=== PATIENT | female | born 1940 | race Caucasian/White ===

== ENCOUNTER 2016-07-19 11:13 | Inpatient (IN) | payer MEDICARE, SELFPAY ==
[2016-07-26] MEDS ORDERED: COZAAR100 MG PO (09:02)
[2016-07-26] MEDS ORDERED: BREO ELLIPTA 11 EACH IH (09:02)
[2016-07-26] MEDS ORDERED: OMEPRAZOLE40 MG PO (09:02)
== END 2016-07-22 12:30 | disposition home health service (06) | DRG 645 ==
LOC: ER 11:13 → MED 18:15
PROVIDERS: ADMIT Internal Medicine
DX: E22.2 Syndrome of inappropriate secretion of antidiuretic hormone (principal); E87.6 Hypokalemia; K52.9 Noninfective gastroenteritis and colitis, unspecified; R11.0 Nausea; I10 Essential (primary) hypertension; K21.9 Gastro-esophageal reflux disease without esophagitis; F03.90 Unspecified dementia, unspecified severity, without behavioral disturbance, psychotic disturbance, mood disturbance, and anxiety; J45.909 Unspecified asthma, uncomplicated; K44.9 Diaphragmatic hernia without obstruction or gangrene; K29.70 Gastritis, unspecified, without bleeding; K91.5 Postcholecystectomy syndrome; R10.13 Epigastric pain; Z90.49 Acquired absence of other specified parts of digestive tract; Z88.0 Allergy status to penicillin; Z79.899 Other long term (current) drug therapy; Z87.891 Personal history of nicotine dependence; Z83.3 Family history of diabetes mellitus; E86.0 Dehydration; T50.2X5A Adverse effect of carbonic-anhydrase inhibitors, benzothiadiazides and other diuretics, initial encounter
CPT/HCPCS: 36415; 87507; 92610; J1650; Q9963; Q9967

== ENCOUNTER 2016-07-19 11:13 | Emergency (ER) | payer MEDICARE, SELFPAY ==
[2016-07-26] MEDS ORDERED: BREO ELLIPTA 11 EACH IH (09:02)
[2016-07-26] MEDS ORDERED: COZAAR100 MG PO (09:02)
[2016-07-26] MEDS ORDERED: OMEPRAZOLE40 MG PO (09:02)
== END 2016-07-19 18:14 | disposition critical access hospital (66) ==
LOC: ER 11:13
DX: R10.9 Unspecified abdominal pain (principal); E87.1 Hypo-osmolality and hyponatremia; E87.6 Hypokalemia; R11.2 Nausea with vomiting, unspecified; F41.9 Anxiety disorder, unspecified; F32.9 Major depressive disorder, single episode, unspecified; I10 Essential (primary) hypertension; Z79.899 Other long term (current) drug therapy; Z88.8 Allergy status to other drugs, medicaments and biological substances
CPT/HCPCS: 36415; 96361; 96365; 96366; 96375; Q9967

== ENCOUNTER → 2017-01-18 | Day surgery (SDC) | payer MEDICARE ==
[~2017-01-18] MED LIST: BREO ELLIPTA 11 EACH IH; COZAAR100 MG PO; OMEPRAZOLE40 MG PO
== END | disposition home or self-care (01) ==
LOC: SDCH 11:13
DX: K29.50 Unspecified chronic gastritis without bleeding (principal); K44.9 Diaphragmatic hernia without obstruction or gangrene; I10 Essential (primary) hypertension; K21.9 Gastro-esophageal reflux disease without esophagitis; Z88.8 Allergy status to other drugs, medicaments and biological substances; Z90.49 Acquired absence of other specified parts of digestive tract
CPT/HCPCS: J2704